=== PATIENT | male | born 1955 | race Two or more races ===

== ENCOUNTER 2024-05-15 07:42 | Day surgery (SDC) | payer BC, OTHER ==
[~2024-05-15] VITALS: Ht 182.9 cm; Wt 106.2 kg
[2024-05-15] VITALS (15 sets, daily range): BP systolic 137–178; BP diastolic 70–99; PULSE 68–76; RESP 12–17; TEMP 97.4; O2SAT 93–98
[2024-05-15] MEDS ORDERED: nitroGLYCERIN 0.4mg SUBLingual tab SL PRN (08:15)
[2024-05-15] MEDS ORDERED: DEXTROSE 15 GM of carb/4 tabs (each vial/BOTTLE has 4 tablets) PO PRN ×2 (08:20)
[2024-05-15] MEDS ORDERED: glucagon, human recombinant 1mg kit SUBCUT PRN (08:20)
[2024-05-15] MEDS ORDERED: dextrose 50%-water 50ml dispensing syringe IV PRN ×2 (08:20)
[2024-05-15] MEDS ORDERED: ASPI-1397 PO (08:46)
[2024-05-15] MEDS ORDERED: MELO-102 PO (08:46)
[2024-05-15] MEDS ORDERED: BUPR-561 PO (08:46)
[2024-05-15] MEDS ORDERED: METF-438 PO (08:46)
[2024-05-15] MEDS ORDERED: FLUT1BLS10 INH (08:46)
[2024-05-15] MEDS ORDERED: CYCL-1 PO (08:46)
[2024-05-15] MEDS ORDERED: ATOR-2 PO (08:46)
[2024-05-15] MEDS ORDERED: HYDR-3973 PO (08:46)
[2024-05-15] MEDS ORDERED: GABA300T28 PO (08:46)
[2024-05-15 08:51] LABS: BASOPHILS # (AUTO) 0.1 X10'3 (0-0.2); BASOPHILS % (AUTO) 0.6 % (0-1); EOSINOPHILS # (AUTO) 0.1 X10'3 (0-0.9); EOSINOPHILS % (AUTO) 1.1 % (0-6); HEMATOCRIT 43.6 % (42.0-52.0); HEMOGLOBIN 14.7 g/dl (14.0-17.9); LYMPHOCYTES # (AUTO) 1.8 X10'3 (1.1-4.8); LYMPHOCYTES % (AUTO) 21.5 % (21-51); MEAN CORPUSCULAR HEMOGLOBIN 32.4 PG (27.0-31.0); MEAN CORPUSCULAR HGB CONC 33.8 g/dL (33.0-36.5); MEAN CORPUSCULAR VOLUME 96.1 FL (78-98); MEAN PLATELET VOLUME 9.7 FL (7.4-10.4); MONOCYTES # (AUTO) 0.7 X10'3 (0-0.9); MONOCYTES % (AUTO) 8.7 % (2-12); NEUTROPHILS # (AUTO) 5.8 X10'3 (1.8-7.7); NEUTROPHILS % (AUTO) 68.1 % (42-75); PLATELET COUNT 168 X10'3 (140-440); RED BLOOD COUNT 4.54 X10'6 (4.70-6.10); RED CELL DISTRIBUTION WIDTH 14.2 % (11.5-14.5); WHITE BLOOD COUNT 8.5 X10'3 (4.5-11.0)
[2024-05-15] MEDS ORDERED: midazolam 1 mg/ML 2ml injection ONE (08:52)
[2024-05-15] MEDS: LORazepam 0.5 MG tablet PO PRN (08:52)
[2024-05-15] MEDS: diphenhydrAMINE 25mg capsule PO PRN (08:52)
[2024-05-15] MEDS ORDERED: LIDOcaine 1% 30ml preserv. free vial ONE (08:52)
[2024-05-15] MEDS ORDERED: fentaNYL/PF 50MCG/1 ML 2ML syringe ONE (08:52)
[2024-05-15] MEDS ORDERED: iohexol 350 MG/ML 50ML vial IV ONE (08:53)
[2024-05-15] MEDS ORDERED: iohexol 350MG/ML 100ml bottle IV ONE (08:53)
[2024-05-15] MEDS: normal saline 1,000 ML IV SCH (08:53)
[2024-05-15 08:58] LABS: APTT 25 SECONDS (22-32); PROTHROMBIN TIME 10.8 SECONDS (9.0-12.0)
[2024-05-15 09:23] LABS: ANION GAP 8 (8-16); BLOOD UREA NITROGEN 15 MG/DL (7-18); BUN/CREATININE RATIO 14.6 (10.0-20.0); CALCIUM 9.1 MG/DL (8.5-10.1); CHLORIDE 102 MMOL/L (99-107); CREATININE 1.03 MG/DL (0.60-1.10); GLUCOSE 170 MG/DL (70-104); POTASSIUM 4.4 MMOL/L (3.5-5.1); SODIUM 137 MMOL/L (135-145); TOTAL CARBON DIOXIDE 26.9 MMOL/L (24-32); eCRCL 75 ML/MIN; eGFR 72 ML/MIN
[2024-05-15 09:28] LABS: ALBUMIN 3.8 G/DL (3.4-5.0)
[2024-05-15] MEDS ORDERED: enalaprilat dihydrate 2.5mg/2ml vial IV ONE (09:49)
[2024-05-15] MEDS ORDERED: proCHLORperazine 10 MG/2 ml inj IV PRN (10:40)
[2024-05-15] MEDS ORDERED: HYDROcodone/acetaminophen 5mg/325mg tablet PO PRN (10:40)
[2024-05-15] MEDS ORDERED: OXAZEpam 15mg capsule PO PRN (10:40)
[2024-05-15] MEDS ORDERED: ondansetron/PF 4mg/2ml inj IV PRN (10:40)
[2024-05-15] MEDS: HYDROcodone/acetaminophen 10/325mg tab PO PRN (14:43)
== END 2024-05-15 17:55 | disposition home or self-care (01) ==
LOC: SSTAY O 07:42
PROVIDERS: ATTEND Internal Medicine Cardiovascular Disease
DX: R94.39 Abnormal result of other cardiovascular function study (principal); I25.119 Atherosclerotic heart disease of native coronary artery with unspecified angina pectoris; I45.10 Unspecified right bundle-branch block; I10 Essential (primary) hypertension; E11.9 Type 2 diabetes mellitus without complications; J44.9 Chronic obstructive pulmonary disease, unspecified; E66.9 Obesity, unspecified; Z68.31 Body mass index [BMI] 31.0-31.9, adult
CPT/HCPCS: 36415; 71046; 80048; 82948; 83036; 85025; 85610; 85730; 93005; 93458; 99152; C1760; J1644; J2250; J3010; J3490; J7030; Q0163; Q9967; 99153; A6258

== ENCOUNTER 2024-07-11 05:22 | Day surgery (SDC) | payer BC, OTHER ==
[2024-07-03 15:13] LABS: BASOPHILS % (AUTO) 0.5 % (0-1); EOSINOPHILS # (AUTO) 0.1 X10'3 (0-0.9); EOSINOPHILS % (AUTO) 1.4 % (0-6); HEMATOCRIT 42.7 % (42.0-52.0); HEMOGLOBIN 14.2 g/dl (14.0-17.9); LYMPHOCYTES # (AUTO) 2.4 X10'3 (1.1-4.8); MEAN CORPUSCULAR HEMOGLOBIN 31.9 PG (27.0-31.0); MEAN CORPUSCULAR HGB CONC 33.3 g/dL (33.0-36.5); MEAN CORPUSCULAR VOLUME 95.8 FL (78-98); MEAN PLATELET VOLUME 9.3 FL (7.4-10.4); MONOCYTES # (AUTO) 0.6 X10'3 (0-0.9); MONOCYTES % (AUTO) 6.4 % (2-12); NEUTROPHILS # (AUTO) 5.8 X10'3 (1.8-7.7); NEUTROPHILS % (AUTO) 64.7 % (42-75); PLATELET COUNT 194 X10'3 (140-440); RED BLOOD COUNT 4.45 X10'6 (4.70-6.10); RED CELL DISTRIBUTION WIDTH 13.6 % (11.5-14.5)
[2024-07-03 15:26] LABS: ALANINE AMINOTRANSFERASE 16 U/L (12-78); ALBUMIN 3.7 G/DL (3.4-5.0); ALBUMIN/GLOBULIN RATIO 1.2 (1.1-1.5); ALKALINE PHOSPHATASE 72 IU/L (46-116); ANION GAP 7 (8-16); ASPARTATE AMINO TRANSFERASE 12 U/L (10-37); BILIRUBIN,TOTAL 0.6 MG/DL (0.1-1.0); BLOOD UREA NITROGEN 14 MG/DL (7-18); BUN/CREATININE RATIO 12.4 (10.0-20.0); CHLORIDE 104 MMOL/L (99-107); CREATININE 1.13 MG/DL (0.60-1.10); GLUCOSE 108 MG/DL (70-104); SODIUM 139 MMOL/L (135-145); TOTAL CARBON DIOXIDE 27.9 MMOL/L (24-32); TOTAL PROTEIN 6.7 G/DL (6.4-8.2); eGFR 65 ML/MIN
[~2024-07-11] VITALS: Ht 182.9 cm; Wt 103.4 kg
[2024-07-11] VITALS (17 sets, daily range): BP systolic 140–161; BP diastolic 71–86; PULSE 66–82; RESP 11–17; TEMP 98; O2SAT 95–100
[~2024-07-11 05:22] MED LIST: ASPI-1397 PO; ATOR-2 PO; BUPR-561 PO; CYCL-1 PO; FLUT1BLS10 INH; GABA300T28 PO; HYDR-3973 PO; METF-438 PO; SEMA0.258 SQ
[2024-07-11] MEDS: ringers solution, lacted 1,000 ML IV SCH (06:05)
[2024-07-11] MEDS: famotidine 20mg tablet PO ONE (06:05)
[2024-07-11] MEDS: cefazolin 2gm/D5W 100mL 100 ML IV ONE (06:06)
[2024-07-11] MEDS ORDERED: BUPIVAcaine 2.5mg/ml inj 50ml vial (contains preservative) ONE (06:44)
[2024-07-11] MEDS ORDERED: bacitracin 15gm ointment TP ONE (06:44)
[2024-07-11] MEDS ORDERED: sevoflurane 250ml liquid IH ONE (07:05)
[2024-07-11] MEDS ORDERED: midazolam 1 mg/ML 2ml injection ONE (07:15)
[2024-07-11] MEDS ORDERED: fentaNYL/PF 50MCG/1 ML 2ML syringe ONE (07:15)
[2024-07-11] MEDS ORDERED: LIDOcaine 2% (20mg/ml) 5ml vial ONE (07:24)
[2024-07-11] MEDS ORDERED: ROPIVAcaine 0.5% (5mg/ml) 30ml vial ONE (07:24)
[2024-07-11] MEDS ORDERED: propofol inj 20 ML IV ONE (07:24)
[2024-07-11] MEDS ORDERED: fentaNYL/PF 50MCG/1 ML 2ML syringe IV PRN ×2 (07:45)
[2024-07-11] MEDS ORDERED: morphine 2 MG/ML inj. syringe IV PRN (07:45)
[2024-07-11] MEDS ORDERED: ringers solution, lacted 1,000 ML IV SCH (07:45)
[2024-07-11] MEDS ORDERED: hydrALAZINE 20mg/ml inj. IV PRN (07:45)
[2024-07-11] MEDS ORDERED: ondansetron/PF 4mg/2ml inj IV PRN (07:45)
[2024-07-11] MEDS ORDERED: labetalol 20mg/4ml (5mg/ml) syringe IV PRN (07:45)
[2024-07-11] MEDS ORDERED: morphine 4 MG/ML inj SYRINge IV PRN (07:45)
[2024-07-11] MEDS: HYDROcodone/acetaminophen 10/325mg tab PO ONE (10:29)
== END 2024-07-11 11:51 | disposition home or self-care (01) ==
LOC: PAS 05:22
PROVIDERS: ATTEND Podiatrist Foot & Ankle Surgery
DX: M19.072 Primary osteoarthritis, left ankle and foot (principal); G89.18 Other acute postprocedural pain; I10 Essential (primary) hypertension; I25.119 Atherosclerotic heart disease of native coronary artery with unspecified angina pectoris; E11.9 Type 2 diabetes mellitus without complications; J44.9 Chronic obstructive pulmonary disease, unspecified; F17.200 Nicotine dependence, unspecified, uncomplicated; Z79.82 Long term (current) use of aspirin; Z79.84 Long term (current) use of oral hypoglycemic drugs; Z79.891 Long term (current) use of opiate analgesic; Z79.899 Other long term (current) drug therapy; Z98.890 Other specified postprocedural states
CPT/HCPCS: 28750; 64450; 73630; 80053; 82948; 85025; A6223; C1713; J0690; J2250; J2405; J2704; J2795; J3010; J3490; J7030; J7120; Z7506; Z7508; Z7512; 76000; A4215; A4618; A6449; A7000